=== PATIENT | male | born 1965 | race Caucasian/White ===

== ENCOUNTER 2018-10-01 23:27 | Inpatient (IN) | payer BC ==
[~2018-10-01] VITALS: Ht 177.8 cm; Wt 104.3 kg
--- NOTE | 2018-10-01 23:45 | NUR ---
patient came from [facility], direct admit, he is alert oriented, on bed side. per patient, he came to ER because of chest discomfort since last Sunday. IV line was inserted from ER to right antecubital size 20 g. he is ambulates independently. vitals checked, no distress noted.
[2018-10-02] VITALS (10 sets, daily range): BP systolic 101–136; BP diastolic 73–94
[2018-10-02] MEDS ORDERED: COLCRYS0.6 MG PO (00:06)
[2018-10-02] MEDS ORDERED: AMLODIPINE BESYL5 MG PO (00:06)
[2018-10-02] MEDS ORDERED: SUBOXONE 2 MG-1 EAC2 PO (00:06)
[2018-10-02] MEDS ORDERED: DIOVAN HCT 1601 EAC1 PO (00:06)
[2018-10-02] MEDS ORDERED: METOPROLOL SUCC25 MG PO (00:06)
[2018-10-02] MEDS ORDERED: CLONIDINE HCL 0.1 MG TAB PO PRN (00:15)
[2018-10-02] MEDS ORDERED: ACETAMINOPHEN 325 MG TAB PO PRN (00:15)
[2018-10-02] MEDS ORDERED: NITROGLYCERIN 0.4 MG SUBL SL PRN (00:15)
[2018-10-02] MEDS: SODIUM CHLORIDE 0.45% 1,000 ML IV SCH ×2 (00:50→14:31)
[2018-10-02 01:10] LABS: CREATINE KINASE MB 2.4 ng/mL (0-5.0)
[2018-10-02] MEDS: MORPHINE SULFATE INJ 4 MG/ML INJ 1ML IV PRN ×2 (02:08→21:20)
[2018-10-02] MEDS ORDERED: MELOXICAM7.5 MG PO (02:26)
[2018-10-02] MEDS ORDERED: AMBIEN10 MG PO (02:27)
[2018-10-02 05:15] LABS: BASOPHILS % 0.5 % (0.0-1.0); EOSINOPHILS # (AUTO) 0.2 (0.0-0.4); EOSINOPHILS % 2.3 % (0.0-6.0); LYMPHOCYTES # (AUTO) 2.3 (1.0-3.2); LYMPHOCYTES % 34.4 % (18.0-39.1); MEAN CORPUSCULAR HEMOGLOBIN 32.7 pg (28-32); MEAN CORPUSCULAR HGB CONC 36.1 g/dL (31-35); MEAN CORPUSCULAR VOLUME 90.7 fL (81-99); MONOCYTES # (AUTO) 1.1 (0.2-0.8); MONOCYTES % 16.8 % (4.4-11.3); NEUTROPHILS % 45.4 % (38.7-80.0); PLATELET COUNT 206 x10e3/uL (140-360); RED BLOOD COUNT 3.97 x10e6/uL (4.3-5.7); RED CELL DISTRIBUTION WIDTH 12.7 % (11.7-14.4)
[2018-10-02 05:39] LABS: CREATINE KINASE MB 1.6 ng/mL (0-5.0)
[2018-10-02 05:53] LABS: CREATININE, SERUM 1.83 mg/dL (0.72-1.25)
--- NOTE | 2018-10-02 06:19 | NUR ---
called answering service for dr Longoria for routine consult spoke with Chayo.
--- NOTE | 2018-10-02 06:25 | NUR ---
called and left a message to Dr Wilburn answering service for consult.
--- NOTE | 2018-10-02 07:34 | NUR ---
PAGED MD ALBERT PEREZ
[2018-10-02] MEDS: METOPROLOL SUCCINATE 25 MG TAB XL PO SCH ×2 (09:34→15:47)
[2018-10-02] MEDS ORDERED: POTASSIUM CHLORIDE 20 MEQ TAB CR PO NR ×2 (14:30→14:45)
--- NOTE | 2018-10-02 16:45 | Diagnostic Imaging Report ---
Renal ultrasound Clinical History: Acute renal failure Discussion: Sonographic evaluation of the kidneys is performed. The kidneys have normal size and cortical echogenicity. The right kidney measures 9.8 cm in length. The left kidney measures 12.2 cm in length. There is no focal hydronephrosis, or shadowing renal calculus. In the interpolar region left kidney there are 2 anechoic lesions measuring 3.2 x 2.8 x 3.7 cm and 1.5 x 1.2 x 1.2 cm. No perinephric fluid collection is seen. Survey images of the bladder demonstrate no abnormality. Impression: 1. Right renal cysts as described. Signed by: Dr. Lj Correa MD on 10/02/2018 4:42 PM
--- NOTE | 2018-10-02 16:51 | Consultation ---
DATE OF CONSULTATION: History predominantly from the patient and . HISTORY OF PRESENT ILLNESS: This is a 53-year-old gentleman, underlying history of hypertension. No prior history of any renal insufficiency, kidney stone disease, or diabetes, was at work and he was climbing up and down his ladder with his toolbox, developed unusual chest pain, something which he has never felt before, presented to the hospital to rule out [place], found to have acute kidney injury. IV fluids were started. He follows up with Dr. Lucia and apparently according to recently had blood tests done and was told that both his liver and kidney functions were fine. The patient has history of chronic tophaceous gout. 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 Denies prior history of CVA. Denies any history of kidney stones, but has had appendectomy in the past. The patient does not smoke, but used to drink quite heavy, about 8 cans of 40 ounces of beer every day, but he has stopped about 7 days ago and has not had a drink since. He is currently lying supine and completely asymptomatic. Denies shortness of breath, nausea, and vomiting. OTC medications, the patient denies taking any nonsteroidal, anti-inflammatory drug medications on a regular basis, but does take Excedrin fairly often because of his headaches. He is also on buprenorphine for his prior addiction. LABORATORY DATA: His current labs; white count 6.5, hemoglobin 13, potassium 3, bicarb 27 with a creatinine 1.83. CK of 88, troponin I is 0.020. SOCIAL HISTORY: As above. The patient's is by bedside. ALLERGIES: HE IS ALLERGIC TO PENICILLIN, IODINE, AND PROMETHAZINE. CURRENT MEDICATIONS: Include IV half-normal saline at 75 mL an hour, Tylenol p.r.n., metoprolol 25 mg p.o. b.i.d., nitroglycerin p.r.n., received 2 doses . PHYSICAL EXAMINATION: GENERAL: Awake, alert, and oriented x3. No apparent distress. VITAL SIGNS: Blood pressure of 121/92, pulse rate 98, afebrile, and oxygen saturation 99% on room air. HEAD AND NECK: Cornea clear. Oral mucosa moist. Neck veins flat. LUNGS: Relatively clear. No rales or rhonchi. HEART: S1 and S2 audible. ABDOMEN: Otherwise soft and nontender. EXTREMITIES: Lower extremity examination shows no edema. IMPRESSION AND PLAN: Acute kidney injury. The patient admitted with chest pain. Cardiology on consult, history of tophaceous gout. No history of kidney stones. Current volume status stable. Plan on working up his underlying renal failure with urinalysis, spot urine protein creatinine ratio, kidney ultrasound, obtain uric acid level. I will monitor the patient's kidney function, urine output review. We will need office followup, avoidance of nonsteroidal and anti-inflammatory drug medications. No JOSUE or ARB inhibitors for now. Please see orders. MD MENDEZ Dillon/NAVJOT /[id number]
--- NOTE | 2018-10-02 19:21 | Consultation ---
DATE OF CONSULTATION: Cardiology Consult Note REASON FOR CONSULT: Chest pain. CHIEF COMPLAINT: Chest pain. HISTORY OF PRESENT ILLNESS: The patient is a 53-year-old man with history of hypertension, history of heavy drinking up to 8 beers a day, quit last week, cold turkey, who presents with one week of exertional chest discomfort. He says about a week ago, Sunday, he had a 30-minute episode of chest pressure that was substernal, nonradiating, not associated with an any other symptoms and a cardiac arrest. This, however, improved on its own, but has been recurring at work when he exerts himself in a milder form. Denies any previous cardiovascular issues. Nonsmoker previously. No family history of early CAD. REVIEW OF SYSTEMS: As above, otherwise negative. PAST MEDICAL HISTORY: Hypertension. PAST SURGICAL HISTORY: Noncontributory. SOCIAL HISTORY: The patient does not smoke. He used to drink heavily up to eight 16-ounce beers a day, but quit last week. Does not do any drugs. FAMILY HISTORY: No family history of early CAD or sudden cardiac . OUTPATIENT MEDICATIONS: Reviewed. ALLERGIES: REVIEWED. OBJECTIVE: VITAL SIGNS: Temperature afebrile, pulse 76, respiratory rate 20, blood pressure 101/76, saturating 96% on room air. GENERAL: Middle-aged man, in no acute distress. CARDIOVASCULAR: Regular rate and rhythm. No murmurs, rubs, or gallops. LUNGS: Clear to auscultation bilaterally. ABDOMEN: Soft, nontender, nondistended. Obese. NEURO AND PSYCH: Alert and oriented to person, place, and time. Normal affect. INPATIENT MEDICATIONS: Reviewed. LABORATORY DATA: Reviewed. Troponins negative x2. Creatinine is 1.83, potassium is 3.0. IMAGING DATA: Reviewed. Renal ultrasound without any significant abnormalities. EKG reviewed. No acute ischemic changes. ASSESSMENT AND PLAN: 1. Chest pain. 2. Hypertension. PLAN: Chest pain has typical and atypical features. He has some risk factors. Plan for exercise stress test tomorrow. Further recommendations to follow. Thank you for this consult. We will continue to follow. MD ELIS Alexander/NAVJOT /[id number]
[2018-10-03 04:32] VITALS: BP 131/80
[2018-10-03 05:27] LABS: ALANINE AMINOTRANSFERASE 46 IU/L (0-55); ALBUMIN 3.5 g/dL (3.5-5.0); ALBUMIN/GLOBULIN RATIO 1.1 (0.8-2.0); ALKALINE PHOSPHATASE 62 IU/L (40-150); ANION GAP 14.2 mmol/L (8-16); BLOOD UREA NITROGEN 17 mg/dL (7-26); BUN/CREATININE RATIO 15 (6-25); CALCIUM 9.3 mg/dL (8.4-10.2); CARBON DIOXIDE 26 mmol/L (22-29); CHLORIDE 102 mmol/L (98-107); CREATININE, SERUM 1.16 mg/dL (0.72-1.25); EST GLOMERULAR FILTRATION RATE > 60 ML/MIN (60-); GLUCOSE 96 mg/dL (74-118); POTASSIUM 3.2 mmol/L (3.5-5.1); SODIUM 139 mmol/L (136-145)
[2018-10-03] MEDS: SODIUM CHLORIDE 0.45% 1,000 ML IV SCH ×2 (05:43→16:15)
--- NOTE | 2018-10-03 07:02 | NUR ---
Report given to oncoming nurse Raeann.
[2018-10-03 07:06] VITALS: BP 113/76
[2018-10-03 07:07] VITALS: BP 113/76
[2018-10-03] MEDS: METOPROLOL SUCCINATE 25 MG TAB XL PO SCH ×2 (07:11→17:43)
--- NOTE | 2018-10-03 10:54 | Discharge Summary ---
HOSPITAL COURSE: Mr. Rivas is a 53-year-old male with history of hypertension and gout, came to the emergency room complaining of one week history of chest pain on and off and feeling very weak. The patient works outside under the sun. He was found to be in acute renal failure probably due to dehydration, admitted to the hospital, started on IV fluids. Renal function went back to normal today. Due to the chest pain, he is going to go for a stress test today and if negative, he is going to be able to go home. PHYSICAL EXAMINATION: GENERAL: He is awake and alert. He is feeling better. He still has some chest discomfort coming on and off. VITAL SIGNS: Temperature is 98, blood pressure is 113/76. HEART: Regular rate. LUNGS: Clear to auscultation. ABDOMEN: Soft. EXTREMITIES: Lower extremity, no edema. No erythema. LABORATORY DATA: On the blood work, white count 6.54, hemoglobin 13, hematocrit 36. Potassium 3.2, we are going to replace that. Creatinine today is 1.16. Uric acid is elevated. Renal ultrasound shows right renal cyst. No other findings. DISCHARGE DIAGNOSES: 1. Chest pain, rule out coronary artery disease. 2. Acute renal failure, resolved. 3. Dehydration, resolved. 4. Hypokalemia, we will replace potassium. 5. Hypertension. 6. Gout. PLAN: At present time is to replace potassium. Renal function is back to normal. He is going to go for stress test today. If stress test comes negative and he gets cleared by portable grinding machine operator and pocket and pulley machine operator, he is going to be able to go home. Continue all home medications. All this was discussed with the patient at bedside. All questions were answered to satisfaction. Please see home medication reconciliation list. He was instructed to follow up with his PCP in one week. He is to call me or come back to the emergency room if any recurrent problem. MD STACIE Wright/NAVJOT /[id number]
[2018-10-03 11:23] VITALS: BP 112/74
--- NOTE | 2018-10-03 12:01 | NUR ---
pt off unit for stress test vs stable no c/o cp
[2018-10-03] MEDS ORDERED: REGADENOSON 0.4 MG/5 ML SYR IV ONE (12:02)
[2018-10-03 17:06] VITALS: BP 119/85
[2018-10-03] MEDS ORDERED: POTASSIUM CHLORIDE 20 MEQ TAB CR PO ONE (17:11)
--- NOTE | 2018-10-03 20:37 | Progress Note ---
DATE: 10/03/2018 SUBJECTIVE: No major events overnight. Had a stress test today. OBJECTIVE: VITAL SIGNS: Temperature afebrile, pulse 80, respiratory rate 18, blood pressure 119/85, saturating 99% on room air. GENERAL: Middle-aged, man, in no acute distress. CARDIOVASCULAR: Regular rate and rhythm. No murmurs, rubs, or gallops. LUNGS: Clear to auscultation bilaterally. ABDOMEN: Obese, soft, nontender, nondistended. NEURO AND PSYCH: Alert and oriented to person, place, and time. Normal affect. INPATIENT MEDICATIONS: Reviewed. LABORATORY DATA: Reviewed. TELEMETRY DATA: Reviewed, shows normal sinus rhythm. IMAGING DATA: Reviewed. Nuclear medicine perfusion study, stress test today shows normal myocardial perfusion and normal LV function. ASSESSMENT: 1. Chest pain. 2. Hypertension. PLAN: Stress test is normal. The patient is okay to be discharged from cardiovascular standpoint. He will follow up in the office two weeks post discharge. Thank you for this consult. We will continue to follow. MD ELIS Alexander/ELIZABETHL /[id number]
--- NOTE | 2018-10-17 16:17 | Myoview Stress Test ---
DATE OF STUDY: 10/02/2018 16:53:00 Stress Test - Treadmill ONLY PROCEDURE TITLE: Rest/stress single isotope SPECT imaging with pharmacologic stress and gated SPECT imaging. INDICATION: Chest pain. PROCEDURE IN DETAIL: Pharmacologic stress testing was performed with regadenoson per protocol. The heart rate was 81 beats per minute at rest and increased to 105 beats per minute during the regadenoson infusion. The resting blood pressure was 134/84 mmHg and decreased to 122/80 mmHg, which is a normal response. The resting electrocardiogram demonstrated normal sinus rhythm. There were no ST-segment changes suggestive of myocardial ischemia. Next, myocardial perfusion imaging was performed at rest following the injection of 11 mCi of tetrofosmin. At peak pharmacologic effect, the patient was injected with 33 mCi of tetrofosmin. Gated post-stress tomographic imaging was performed. FINDINGS: The overall quality of the study is good. The left ventricular cavity is noted to be normal size on the rest and stress studies. SPECT images demonstrate homogeneous tracer distribution throughout the myocardium. Gated SPECT imaging reveals normal myocardial thickening and wall motion. The left ventricular ejection fraction was calculated to be greater than 70%. IMPRESSION: Myocardial perfusion imaging is normal. Overall, left ventricular systolic function was normal without regional wall motion abnormalities. Xochitl Major MD ABS/MODL /[id number]
== END 2018-10-03 18:38 | disposition home or self-care (01) | DRG 641 ==
LOC: IMCU 23:41
PROVIDERS: ADMIT Internal Medicine; ATTEND Internal Medicine
DX: E86.0 Dehydration (principal); N17.9 Acute kidney failure, unspecified; R07.9 Chest pain, unspecified; E87.6 Hypokalemia; I10 Essential (primary) hypertension; F10.10 Alcohol abuse, uncomplicated; Z88.0 Allergy status to penicillin; Z88.8 Allergy status to other drugs, medicaments and biological substances; Z91.041 Radiographic dye allergy status; M1A.9XX1 Chronic gout, unspecified, with tophus (tophi)
CPT/HCPCS: 36415; 76770; 78452; 80048; 80053; 82550; 82553; 84484; 84550; 85025; 93005; 93017; A9502; J2270